=== PATIENT | female | born 1960 | race Caucasian/White ===

== ENCOUNTER 2017-03-31 13:40 | Day surgery (SDC) | payer MEDICAID ==
[~2017-03-31 13:40] MED LIST: BUPIVACAINE/EPI 0.25% 30 ML SDV ONE; EPINEPHrine 30 MG/30 ML MDV ONE
[2017-03-31] MEDS ORDERED: PREGABALIN 150 MG CAP PO ONE (14:00)
[2017-03-31] MEDS ORDERED: ACETAMINOPHEN 500 MG TAB PO ONE (14:00)
[2017-03-31] MEDS ORDERED: ceFAZolin 2 GM/DEXTROSE 100 ML IV ONE (14:00)
[2017-03-31] MEDS ORDERED: SCOPOLAMINE HYDROBROMIDE 1.5 MG PATCH TD ONE (14:00)
[2017-03-31] MEDS ORDERED: LIDOCAINE 1% 5 ML SDV ID PRN (14:19)
[2017-03-31] MEDS ORDERED: LR 1,000 ML IV ONE (14:19)
[2017-03-31] MEDS ORDERED: PROPOFOL 200 MG/20 ML VIAL ONE (16:00)
[2017-03-31] MEDS ORDERED: fentaNYL 100 MCG/2 ML INJ ONE ×3 (16:00→18:21)
[2017-03-31] MEDS ORDERED: LIDOCAINE 2% 5 ML SDV ONE (16:00)
[2017-03-31] MEDS ORDERED: MIDAZOLAM 2 MG/2 ML VIAL ONE (16:14)
[2017-03-31] MEDS ORDERED: KETOROLAC 30 MG/1 ML SDV ONE (16:31)
[2017-03-31] MEDS ORDERED: DEXAMETHASONE 4 MG/ML VIAL ONE (16:31)
[2017-03-31] MEDS ORDERED: ONDANSETRON 4 MG/2 ML VIAL ONE ×3 (16:32→20:04)
[2017-03-31] MEDS ORDERED: HYDROmorphONE/DILAUDID 1 MG/ML SYR ONE (18:37)
== END 2017-03-31 21:35 | disposition home health service (06) ==
LOC: FSGY 13:40
PROVIDERS: ATTEND Orthopaedic Surgery Sports Medicine
PROC: 0SBB4ZZ Excision of Left Hip Joint, Percutaneous Endoscopic Approach (ICD-10-PCS; principal; 2017-03-31 15:15)
DX: M76.892 Other specified enthesopathies of left lower limb, excluding foot (principal)
CPT/HCPCS: 29863; 76001; C1769; J0690; J1100; J1170; J1885; J2250; J2405; J2704; J3010